=== PATIENT | male | born 1950 | race Caucasian/White ===

== ENCOUNTER 2020-04-20 20:05 | Emergency (ER) | payer MEDICARE, SELFPAY ==
[2020-04-20 20:03] VITALS: BP 151/83; PULSE 69; RESP 20; TEMP 36.4; O2SAT 99; BMI 49.9
--- NOTE | 2020-04-20 20:03 | ECG_ITS ---
APPROVED REPORT Exam: Resting ECG HR:89 bpm ECG Measurements Heart Rate 89 AXES QRSd 100 QRS 255 QT 400 T 15 QTc 486 Conclusion Atrial fibrillation Right superior axis deviation Low voltage QRS Late R-wave progression Abnormal ECG Electronically signed by : Vinnie Clement, 04/21/2020 14:47:09
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
[2020-04-20 20:27] LABS: Basophils % 0.4 % (0.1-2.0); Eosinophils # 0.2 K/mm3 (0.0-0.4); Eosinophils % 2.3 % (0.1-12.0); Hematocrit 45.5 % (42.0-52.0); Hemoglobin 15.2 g/dL (14.1-18.0); Lymphocytes # 1.1 K/mm3 (0.7-4.5); Lymphocytes % 15.3 % (10-50); Mean Corpuscular HGB Conc 33.5 g/dL (31.8-35.4); Mean Corpuscular Hemoglobin 28.1 pg (27.0-31.2); Mean Platelet Volume 9.3 fl (7.4-10.4); Monocytes # 0.5 K/mm3 (0.1-1.0); Monocytes % 6.4 % (1.7-9.3); Neutrophils # 5.5 K/mm3 (1.8-7.8); Neutrophils % 75.6 % (37.0-80.0); Platelet Count 189 K/mm3 (142-424); Red Blood Count 5.42 M/mm3 (4.60-6.20); Red Cell Distribution Width 15.1 % (11.5-17.5); White Blood Count 7.3 K/mm3 (4.8-10.8)
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
[2020-04-20 20:28] LABS: Chloride 98 mmol/L (98-107); Potassium 4.2 mmoL/L (3.5-5.1); Sodium 135 mmol/L (136-145)
[2020-04-20 20:31] LABS: Alanine Aminotransferase 53 U/L (12-78); Albumin/Globulin Ratio 1.3 (1.1-1.8); Alkaline Phosphatase 54 U/L (38-126); Anion Gap 11.2 mEq/L (5-15); Aspartate Amino Transferase 44 U/L (17-59); Bilirubin,Total 0.8 mg/dl (0.2-1.3); Blood Urea Nitrogen 21 mg/dl (9-20); Calcium 9.3 mg/dl (8.4-10.2); Carbon Dioxide 30 mmol/L (22.0-30.0); Creatinine Clearance Estimated 49 mL/min (50-200); Estimated Glomerular Filt Rate 55 ml/min (>60); GFR (African American) 66 ML/MIN (>60); Globulin 3.1 g/dL (1.3-3.2); Glucose 79 mg/dl (74-100); Total Protein,Serum 7.1 g/dl (6.3-8.2)
[2020-04-20 22:12] VITALS: BP 146/82; PULSE 72; RESP 16; TEMP 36.4; O2SAT 99
[2020-04-20 22:24] LABS: POC Glucose,Bedside 56 (70-110)
[2020-05-21 13:55] LABS: POC Glucose,Bedside 122 (70-110)
== END 2020-04-20 22:14 | disposition home or self-care (01) ==
PROVIDERS: Emergency Provider Emergency Medicine
DX: Z04.1 Encounter for examination and observation following transport accident (principal); V47.0XXA Car driver injured in collision with fixed or stationary object in nontraffic accident, initial encounter; Y92.414 Local residential or business street as the place of occurrence of the external cause
CPT/HCPCS: 70450; 71045; 72125; 72170; 80053; 82962; 85025; 93005; 99283

== ENCOUNTER 2020-10-15 09:57 | Emergency (ER) | payer MEDICARE, OTHER, SELFPAY ==
[2020-10-15 09:58] VITALS: BP 167/82; PULSE 91; RESP 19; TEMP 36.8; O2SAT 97; BMI 45.7
[2020-10-15 10:21] VITALS: BP 164/108; PULSE 89; RESP 20; O2SAT 100
[2020-10-15 10:25] LABS: Basophils % 0.5 % (0.1-2.0); Eosinophils # 0.3 K/mm3 (0.0-0.4); Eosinophils % 3.2 % (0.1-12.0); Hematocrit 33.4 % (42.0-52.0); Hemoglobin 10.7 g/dL (14.1-18.0); Lymphocytes # 1.4 K/mm3 (0.7-4.5); Lymphocytes % 16.6 % (10-50); Mean Corpuscular Hemoglobin 25.7 pg (27.0-31.2); Mean Corpuscular Volume 80.4 fl (80-94); Mean Platelet Volume 7.7 fl (7.4-10.4); Monocytes # 0.7 K/mm3 (0.1-1.0); Monocytes % 8.2 % (1.7-9.3); Neutrophils % 71.6 % (37.0-80.0); Platelet Count 303 K/mm3 (142-424); Red Blood Count 4.15 M/mm3 (4.60-6.20); Red Cell Distribution Width 15.9 % (11.5-17.5); White Blood Count 8.3 K/mm3 (4.8-10.8)
[2020-10-15 10:30] LABS: Chloride 101 mmol/L (98-107)
[2020-10-15 10:31] VITALS: BP 177/105; PULSE 91; RESP 22; O2SAT 99
[2020-10-15 10:31] LABS: Sodium 133 mmol/L (136-145)
[2020-10-15 10:33] LABS: Alanine Aminotransferase 20 U/L (12-78); Albumin Level 3.8 g/dl (3.5-5.0); Albumin/Globulin Ratio 1.1 (1.1-1.8); Alkaline Phosphatase 89 U/L (38-126); Aspartate Amino Transferase 19 U/L (17-59); Bilirubin,Total 0.5 mg/dl (0.2-1.3); Blood Urea Nitrogen 29 mg/dl (9-20); Carbon Dioxide 22 mmol/L (22.0-30.0); Creatinine Clearance Estimated 40 mL/min (50-200); Estimated Glomerular Filt Rate 54 ml/min (>60); GFR (African American) 66 ML/MIN (>60); Globulin 3.5 g/dL (1.3-3.2); Lipase 54 U/L (23-300); Total Protein,Serum 7.3 g/dl (6.3-8.2)
[2020-10-15 10:34] LABS: Calcium 9.5 mg/dl (8.4-10.2); Glucose 104 mg/dl (74-100); Magnesium 1.7 mg/dl (1.6-2.3)
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
[2020-10-15 11:02] VITALS: BP 178/91; PULSE 93; RESP 22; O2SAT 100
--- NOTE | 2020-10-15 11:30 | PC.NURSE ---
faxed info for request of info
[2020-10-15 11:31] VITALS: BP 169/97; PULSE 88; O2SAT 100
[2020-10-15 13:24] VITALS: BP 155/80; PULSE 78; RESP 16; TEMP 36.8; O2SAT 98
== END 2020-10-15 13:25 | disposition home or self-care (01) ==
PROVIDERS: Emergency Provider Emergency Medicine
DX: R11.2 Nausea with vomiting, unspecified (principal); R19.7 Diarrhea, unspecified; M1A.0690 Idiopathic chronic gout, unspecified knee, without tophus (tophi); E11.9 Type 2 diabetes mellitus without complications
CPT/HCPCS: 80053; 83690; 83735; 85025; 96374; 99282